=== PATIENT | female | born 1980 | race African-American/Black ===

== ENCOUNTER → 2017-02-15 | Day surgery (SDC) | payer BC ==
[~2017-02-15] MED LIST: ALBU1AER INH; GABA300C3 PO; HYDR-2768 PO; LACTATED RINGER'S 1000 ML INJ 1,000 ML ONE; MIDAZOLAM HCL 2 MG/2 ML VIAL ONE; ONDANSETRON HCL 4 MG/2 ML VIAL IV PUSH ONE; PROPOFOL 200 MG/20 ML AMP IV ONE; ZOMI5TAB5 PO; ceFAZolin 2 GM PREMIX 50 ML ONE; oxyCODONE/ACETAMINOPHEN 5 MG/325 MG TAB ONE
--- NOTE | 2017-02-15 09:31 | MH ---
cc: OSCAR CRUZ MD DATE OF ADMISSION 02/15/2017 DATE OF : 1980 CHIEF COMPLAINT Pelvic pain, irregular bleeding with secondary infertility. HISTORY OF PRESENT ILLNESS The patient is a 36-year-old black female 2, para 1-0-1-1 with LMP October 14 who comes in for a scheduled hysteroscopy, MyoSure and possible laparoscopy. She has had secondary fertility for some time and there is a concern that she has premature ovarian failure by two prior reproductive endocrinologists. She is known to have fibroids. She has had a prior section and some chronic pelvic pain since. She desires definitive evaluation of the intrauterine cavity and possibly the abdominal cavity to identify adhesions inside the uterus or outside are responsive for her pain and possibly for her inability to conceive. There is a possibility that she has lupus and has had multiple workups as a child. She has had one term delivered by section. She has had a laparoscopic adhesiolysis in March of 2011. She has a history of headache, history of asthma, history of chronic anemia. Some suggestion of endometriosis on a prior laparoscopy. SOCIAL HISTORY She does not smoke, drink or use illicit drugs. PHYSICAL EXAMINATION GENERAL: She is a mildly overweight black female. She weighs 164 pounds, BMI is 31. NECK: She has no thyroid enlargement. LUNGS: Lungs are clear. HEART: Regular BREASTS: Exam was reassuring. PELVIC: Shows a normal perineum, well estrogenized vault. B Nulliparous cervix, uterus is anteverted, somewhat fixed. Fibroid that is quite small, maybe 1 centimeter or less. Normal adnexa. IMPRESSION Pelvic pain, known pelvic adhesions, no recent menses either due to asherman's, premature ovarian failure or polycystic ovarian syndrome. Laboratory workup has been ordered, but we are moving forward with evaluation of the endometrial lining and excision of any polyps or fibroids as indicated. Risks, benefits, expectations have been reviewed in detail and she agrees to proceed in the morning. Oscar Cruz MD PPC/SA /10:43 PM /9:12 AM [facility]
--- NOTE | 2017-02-16 21:52 | MP ---
cc: OSCAR CRUZ DATE OF SURGERY 02/15/17 PREOPERATIVE DIAGNOSIS Pelvic pain and known submucosal fibroid at the fundus of the uterus and possible polyps. POSTOPERATIVE DIAGNOSIS Pelvic pain and known submucosal fibroid at the fundus of the uterus and possible polyps. PROCEDURE Examination under anesthesia, diagnostic hysteroscopy and Myosure excision of a fundal pedunculated fibroid and some polyps in the lower uterine segment. DISCONTINUED Oscar Cruz MD PPC/SA /11:13 AM /9:44 PM
--- NOTE | 2017-02-16 22:02 | MP ---
cc: OSCAR CRUZ DATE OF SURGERY 02/15/17 ADDENDUM Examination under anesthesia and Myosure myomectomy, polypectomy. FINDINGS She had about a 1.5 cm fibroid on the stalk at the very fundus of the uterus more toward her right tubal ostia which was easily excised. She also had some polyps and some submucosal fibroids in the lower uterine segment posteriorly which were easily excised. Both tubal ostia were easily visualized. There was no significant synechiae, no other pathology noted. No iatrogenic injury. PROCEDURE IN DETAIL The patient was taken to the operating room. Her permit was checked. She was placed in dorsal lithotomy position. A time-out was performed. She was given Ancef 1 gram. She was prepped and draped in the dorsal lithotomy position. Examination under anesthesia was performed. She was straight cathed. The cervix was grasped gently and dilated to allow the passage of the hysteroscopy. Systematic evaluation of the intrauterine contents revealed the findings as noted above. Using the Myosure both the flat submucosal fibroid in the posterior lower uterine segment and the INTERRUPTED Oscar Cruz MD PPC/SA /11:14 AM /9:49 PM
== END | disposition home or self-care (01) ==
LOC: ESDC 06:17
PROVIDERS: ATTEND Obstetrics & Gynecology
DX: D25.0 Submucous leiomyoma of uterus (principal); N84.0 Polyp of corpus uteri
CPT/HCPCS: 00952; 58561; 88305; J0690; J2250; J2405; J3010; J7120